=== PATIENT | female | born 1975 ===

== ENCOUNTER 2022-03-26 04:23 | Inpatient (IN) | payer OTHER ==
[2022-03-23 14:19] VITALS: BMI 34.0
[2022-03-26] MEDS ORDERED: MIDAZOLAM HCL 2 MG/2 ML SINGLE DOSE VIAL ONE (12:20)
[2022-03-26] MEDS ORDERED: GENTAMICIN SO4 80 MG/2 ML VIAL ONE ×3 (12:27→14:36)
[2022-03-26] MEDS ORDERED: ceFAZolin SODIUM 1 GM VIAL IVPB ONE (13:40)
[2022-03-26] MEDS ORDERED: GENTAMICIN SO4 80 MG/2 ML VIAL IVPB ONE (14:30)
[2022-03-26] MEDS ORDERED: PROPOFOL 20 ML ONE (14:59)
[2022-03-26] MEDS ORDERED: BACITRACIN ZINC 15 GM TUBE TOPICAL OINTMENT ONE (15:20)
[2022-03-26] MEDS ORDERED: ONDANSETRON 4 MG/2 ML VIAL IVPUSH PRN (15:44)
[2022-03-26] MEDS ORDERED: ACETAMINOPHEN 500 MG TABLET (FP) PO PRN (15:44)
[2022-03-26] MEDS ORDERED: ONDANSETRON 4 MG/2 ML VIAL ONE (19:00)
[2022-03-26] MEDS: CEFAZOLIN 1 GM in DEXTROSE 5%-WATER - 50 ML IVPB SCH (23:07)
[2022-03-27] MEDS: ACETAMINOPHEN W/ CODEINE LIQ 5 ML CUP PO PRN ×3 (01:46→19:45)
[2022-03-27] MEDS: CEFAZOLIN 1 GM in DEXTROSE 5%-WATER - 50 ML IVPB SCH ×2 (07:52→14:23)
[2022-03-27] MEDS: amLODIPine BESYLATE 5 MG TABLET (FP) PO SCH (09:52)
[2022-03-27] MEDS ORDERED: ACETAMINOPHEN 325 MG TABLET (FP) PO PRN (16:04)
[2022-03-27] MEDS: PIPERACILLIN/TAZOB 3.375 GM 3.375 GM in DEXTROSE 5%-WATER - 50 ML IVPB SCH (18:24)
[2022-03-27 19:42] LABS: HEMATOCRIT 29.9 % (32.4-45.2); HEMOGLOBIN 9.7 GM/dL (10.7-15.3); MCH 25.6 pg (25.7-33.7); MCHC 32.5 g/dl (32.0-36.0); MEAN CELL VOLUME 78.9 fl (80-96); MEAN PLT VOLUME 7.1 fl (7.5-11.1); PLATELET COUNT 425 10^3/uL (134-434); RBC 3.79 M/mm3 (3.60-5.2); WHITE BLOOD COUNT 8.2 K/mm3 (4.0-10.0)
[2022-03-27 19:55] LABS: CALCIUM 8.9 mg/dL (8.5-10.1)
[2022-03-27 19:57] LABS: BLOOD UREA NITROGEN 10.5 mg/dL (7-18)
[2022-03-27 19:59] LABS: CREATININE 0.8 mg/dL (0.55-1.3)
[2022-03-27 20:01] LABS: BILIRUBIN,TOTAL 0.2 mg/dL (0.2-1); TOT PROT 6.8 g/dl (6.4-8.2)
[2022-03-27 20:36] LABS: ANISOCYTOSIS 2+; MACROCYTOSIS 1+; OVALOCYTE 1+
[2022-03-28] MEDS: PIPERACILLIN/TAZOB 3.375 GM 3.375 GM in DEXTROSE 5%-WATER - 50 ML IVPB SCH ×3 (02:16→17:30)
[2022-03-28] MEDS: amLODIPine BESYLATE 5 MG TABLET (FP) PO SCH (09:25)
[2022-03-28] MEDS: ENOXAPARIN NA (PORCINE) 40 MG/0.4 ML DISP.SYRIN SQ SCH (09:26)
[2022-03-28] MEDS ORDERED: ONDANSETRON 4 MG/2 ML VIAL IVPUSH PRN (10:08)
[2022-03-28] MEDS ORDERED: oxyCODONE HCL 5 MG TABLET PO PRN (11:51)
[2022-03-28] MEDS ORDERED: NAPROXEN 250 MG TABLET PO SCH (12:00)
[2022-03-28] MEDS: POLYETHYLENE GLYCOL (HEALTHYLAX) 3350 17 GM PACKET PO SCH (12:36)
[2022-03-28] MEDS: NAPROXEN 250 MG TABLET PO SCH ×2 (13:29→21:15)
[2022-03-28 13:31] LABS: IRON SERUM 23 ug/dL (50-175); TOTAL IRON BINDING CAPACITY 308 ug/dL (250-450)
[2022-03-29] MEDS: PIPERACILLIN/TAZOB 3.375 GM 3.375 GM in DEXTROSE 5%-WATER - 50 ML IVPB SCH ×3 (02:49→17:10)
[2022-03-29] MEDS: ENOXAPARIN NA (PORCINE) 40 MG/0.4 ML DISP.SYRIN SQ SCH (09:00)
[2022-03-29] MEDS: amLODIPine BESYLATE 5 MG TABLET (FP) PO SCH (09:00)
[2022-03-29] MEDS: POLYETHYLENE GLYCOL (HEALTHYLAX) 3350 17 GM PACKET PO SCH (09:01)
[2022-03-29] MEDS: NAPROXEN 250 MG TABLET PO SCH (09:01)
[2022-03-29 10:23] LABS: HEMATOCRIT 28.6 % (32.4-45.2); HEMOGLOBIN 9.3 GM/dL (10.7-15.3); MCH 25.6 pg (25.7-33.7); MCHC 32.6 g/dl (32.0-36.0); MEAN CELL VOLUME 78.4 fl (80-96); MEAN PLT VOLUME 7.1 fl (7.5-11.1); PLATELET COUNT 400 10^3/uL (134-434); RBC 3.65 M/mm3 (3.60-5.2); RDW 16.7 % (11.6-15.6); WHITE BLOOD COUNT 5.8 K/mm3 (4.0-10.0)
[2022-03-29 10:48] LABS: CALCIUM 8.8 mg/dL (8.5-10.1)
[2022-03-29 10:49] LABS: BLOOD UREA NITROGEN 10.6 mg/dL (7-18)
[2022-03-29 10:52] LABS: CREATININE 0.8 mg/dL (0.55-1.3)
[2022-03-29 14:14] VITALS: BP 129/81; PULSE 90; RESP 19; TEMP 98
== END 2022-03-29 18:47 | disposition home or self-care (01) | DRG 857 ==
LOC: JASUSAT 04:23 → JASU-SURG 04:23 → J6S 20:54 → JASUSAT 03-27 16:15 → JERBED 03-27 16:16 → UNDOADMIN 03-27 16:16 → J6S 03-27 16:16
PROVIDERS: ADMIT Plastic Surgery; ATTEND Internal Medicine
PROC: 0H9V0ZZ Drainage of Bilateral Breast, Open Approach (ICD-10-PCS; 2022-03-26)
PROC: 0JB60ZZ Excision of Chest Subcutaneous Tissue and Fascia, Open Approach (ICD-10-PCS; principal; 2022-03-26 14:00)
PROC: 0HBT0ZZ Excision of Right Breast, Open Approach (ICD-10-PCS; 2022-03-27)
PROC: 0JB60ZZ Excision of Chest Subcutaneous Tissue and Fascia, Open Approach (ICD-10-PCS; 2022-03-27)
PROC: 0HQ5XZZ Repair Chest Skin, External Approach (ICD-10-PCS; 2022-03-27)
PROC: 3E10X8Z Irrigation of Skin and Mucous Membranes using Irrigating Substance (ICD-10-PCS; 2022-03-27)
DX: T81.49XA Infection following a procedure, other surgical site, initial encounter (principal); L76.32 Postprocedural hematoma of skin and subcutaneous tissue following other procedure; T81.32XA Disruption of internal operation (surgical) wound, not elsewhere classified, initial encounter; Y83.9 Surgical procedure, unspecified as the cause of abnormal reaction of the patient, or of later complication, without mention of misadventure at the time of the procedure; D50.9 Iron deficiency anemia, unspecified; I10 Essential (primary) hypertension; K59.00 Constipation, unspecified
CPT/HCPCS: 36415; 80048; 80053; 81025; 82728; 83540; 83550; 85025; 85027; 85045; 87070; 87076; 87186; 87205; 88304-TC; 93005; 93010; 94760